=== PATIENT | male | born 1955 | race Caucasian/White ===

== ENCOUNTER → 2018-04-26 | Outpatient (CLI) | payer OTHER | END | disposition home or self-care (01) | LOC: ROC 14:05 | PROVIDERS: ATTEND Radiology Radiation Oncology | DX: C61 Malignant neoplasm of prostate (principal) | CPT/HCPCS: 99214; G0463 ==

== ENCOUNTER → 2018-05-22 | Outpatient (CLI) | payer OTHER ==
[~2018-05-22] MED LIST: FENTANYL PF 100 MCG/2ML IVPush ONE; LIDOCAINE 1%, 10ML SQ ONE; LIDOCAINE 1%, 20ML SQ ONE; MIDAZOLAM 1 MG/ML, 5ML IVPush ONE
== END | disposition home or self-care (01) ==
LOC: ROC 07:20
PROVIDERS: ATTEND Radiology Radiation Oncology
DX: C61 Malignant neoplasm of prostate (principal)
CPT/HCPCS: 55876; 76942; 77332; 99156; A4648; J2250; J3010; J3490

== ENCOUNTER → 2018-05-30 | Outpatient (CLI) | payer OTHER | END | disposition home or self-care (01) | LOC: CFH 11:57 | PROVIDERS: ATTEND Radiology Radiation Oncology | DX: C61 Malignant neoplasm of prostate (principal); N43.3 Hydrocele, unspecified | CPT/HCPCS: 72195 ==

== ENCOUNTER → 2018-09-03 | Outpatient (CLI) | payer OTHER | END | disposition home or self-care (01) | LOC: ROC 09:47 | PROVIDERS: ATTEND Radiology Radiation Oncology | DX: C61 Malignant neoplasm of prostate (principal); Z79.899 Other long term (current) drug therapy | CPT/HCPCS: 99212; G0463 ==

== ENCOUNTER → 2019-05-22 | Outpatient (CLI) | payer OTHER | END | disposition home or self-care (01) | LOC: ROC 09:29 | PROVIDERS: ATTEND Radiology Radiation Oncology | DX: C61 Malignant neoplasm of prostate (principal) | CPT/HCPCS: 99212; G0463 ==

== ENCOUNTER → 2020-11-20 | Outpatient (CLI) | payer MEDICARE | END | disposition home or self-care (01) | LOC: ROC 09:44 | PROVIDERS: ATTEND Radiology Radiation Oncology | DX: Z08 Encounter for follow-up examination after completed treatment for malignant neoplasm (principal); Z85.46 Personal history of malignant neoplasm of prostate | CPT/HCPCS: 99212; G0463 ==